=== PATIENT | male | born 1955 | race Caucasian/White ===

== ENCOUNTER 2016-03-11 11:45 | Day surgery (SDC) | payer BC ==
[~2016-03-11] VITALS: Ht 180.3 cm; Wt 104.3 kg
[~2016-03-11 11:45] MED LIST: AMIODARONE HCL200 MG PO; ASPIR-LOW81 MG PO; ATENOLOL100 MG PO; HYOSCYAMINE0.125 M2 PO; LOVASTATIN10 MG PO; MULTIVITAMIN1 EAC2 PO; OMEGA-31000 M1 PO; OMEPRAZOLE20 MG PO; PRADAXA150 MG PO; PROBIOTIC1 EAC1 PO; ZOLOFT50 MG PO
== END 2016-03-12 14:30 | disposition home or self-care (01) ==
LOC: CATH 11:45
DX: I48.0 Paroxysmal atrial fibrillation (principal); E78.5 Hyperlipidemia, unspecified; I10 Essential (primary) hypertension; Z79.82 Long term (current) use of aspirin; H91.90 Unspecified hearing loss, unspecified ear
CPT/HCPCS: 93312; J2250; J2704; J3010; J7050